=== PATIENT | male | born 1990 | race Caucasian/White ===

== ENCOUNTER 2018-04-29 19:02 | Inpatient (IN) | payer BC ==
[~2018-04-29] VITALS: Ht 193 cm; Wt 93.2 kg
[2018-04-29 19:49] LABS: BASO % 0.7 %; BASO ABS # 0.05 K/uL (0-0.2); EOS % 3.9 %; EOS ABS # 0.27 K/uL (0-0.5); HEMATOCRIT 45.4 % (42-52); HEMOGLOBIN 14.9 g/dL (14.0-18.0); IG# 0.02 K/uL (0.00-0.02); LYMPH % 45.2 %; LYMPH ABS # 3.09 K/uL (1.2-3.4); MEAN CELL VOLUME 84.7 fL (80-100); MEAN CORPUSCULAR HEMOGLOBIN 27.8 pg (25-34); MEAN CORPUSCULAR HGB CONC 32.8 g/dl (32-36); MONO % 8.5 %; MONO ABS # 0.58 K/uL (0.11-0.59); NEUT % 41.4 %; NEUT ABS # 2.83 K/uL (1.4-6.5); PLATELET COUNT 226 K/uL (130-400); RED CELL DISTRIBUTION WIDTH CV 12.2 % (11.5-14.5); RED CELL DISTRIBUTION WIDTH SD 37.3 fL (36.4-46.3); WHITE BLOOD COUNT 6.84 K/uL (4.8-10.8)
--- NOTE | 2018-04-29 20:02 | DIAGNOSTIC IMAGING REPORT ---
ABD/PELVIS NO IV OR ORAL CONT CT DOSE: 349.53 mGy.cm HISTORY: Hernia incarcerated umbilical hernia TECHNIQUE: Multiaxial CT images of the abdomen and pelvis were performed without contrast. A dose lowering technique was utilized adhering to the principles of ALARA. COMPARISON STUDY: None. FINDINGS: Lung bases are clear. Liver spleen and pancreas are unremarkable. Kidneys negative for calcification or hydronephrosis. The bowel pattern is nonobstructive. There is a small periumbilical fat-containing hernia. This measures 8 mm in maximum transaxial dimension. There is no evidence of bowel containment. There are no secondary obstructive characteristics. No evidence for adenopathy within the abdominal pelvic or inguinal region. Bladder is midline. IMPRESSION: 1. 8 mm periumbilical fat-containing hernia. 2. No evidence of bowel containment or obstruction. 3. Study is otherwise unremarkable. The above report was generated using voice recognition software. It may contain grammatical, syntax or spelling errors. Electronically signed by: Bashir Bowden M.D. 04/29/2018 8:01 PM Dictated Date/Time: 04/29/2018 7:58 PM
[2018-04-29 20:10] LABS: CALCIUM 8.8 mg/dl (8.5-10.1); CREATININE 1.24 mg/dl (0.60-1.40); POTASSIUM 3.7 mmol/L (3.5-5.1)
[2018-04-29] MEDS ORDERED: MoRPHine SULFATE 4 MG/ML 1 ML CARP\\VIAL IV PRN (20:45)
[2018-04-29] MEDS ORDERED: ACETAMINOPHEN IV 100 ML IV PRN (20:45)
[2018-04-29] MEDS ORDERED: MoRPHine SULFATE 2 MG/ML CARP IV PRN (20:45)
[2018-04-29] MEDS ORDERED: ONDANSETRON INJ 2 MG/ML 2 ML VIAL IV PRN (20:45)
--- NOTE | 2018-04-29 20:59 | Surgery Consultation ---
Consultation Date of Consultation: Apr 29, 2018. Attending Physician: Reason for Consultation: Incarcerated Umbilical Hernia History of Present Illness Patient is a 27M who presents to the ED this evening due to an umbilical hernia that he cannot reduce. Reports he has had this hernia for approximately 2 years and has always been able to reduce it. States it does not typically cause him any pain. Reports mild discomfort at his hernia site tonight. Denies any erythema, swelling or significant pain in the area. Denies fever, chills, nausea , vomiting. He has not had any changes with bowel movements or urination. Denies use of blood thinning or anticoagulant medication. Denies any history of abdominal surgeries in the past. Social History Smoking Status: Never Smoker Allergies Coded Allergies: No Known Allergies (Unverified , 04/29/18) Home Medications No Active Prescriptions or Reported Meds Current Inpatient Medications Current Inpatient Medications Medications (Trade) Dose Ordered Sig/Hira Route Start Time Stop Time Status Last Admin Dose Admin Sodium Chloride 1,000 ml @ 100 mls/hr Q10H IV 04/29/18 20:45 05/29/18 20:44 UNV Cefoxitin Sodium 2000 mg/Dextrose 60 ml @ 100 mls/hr Q6H IV 04/30/18 07:00 05/01/18 06:59 UNV Ondansetron HCl (Zofran Inj) 4 mg Q6H PRN IV 04/29/18 20:45 05/29/18 20:44 UNV Acetaminophen 100 ml @ 400 mls/hr Q8H PRN IV 04/29/18 20:45 05/29/18 20:44 UNV Morphine Sulfate (MoRPHine SULFATE INJ) 1 mg Q3HWA PRN IV 04/29/18 20:45 05/13/18 20:44 UNV Morphine Sulfate (MoRPHine SULFATE INJ) 3 mg Q3HWA PRN IV 04/29/18 20:45 05/13/18 20:44 UNV Review of Systems Constitutional: No fever, No chills Respiratory: No shortness of breath Cardiovascular: No chest pain Abdomen: + pain (tenderness at hernia site), No nausea, No vomiting, No diarrhea, No constipation Genitourinary - Male: No hematuria, No dysuria Integumentary: No new/changing skin lesions, No color change Physical Exam Date Time Temp Pulse Resp B/P (MAP) Pulse Ox O2 Delivery O2 Flow Rate FiO2 8/8/18 19:08 36.8 76 18 136/84 99 Room Air General Appearance: WD/WN, no apparent distress Head: normocephalic, atraumatic ENT: hearing grossly normal Respiratory/Chest: no respiratory distress Abdomen/GI: normal bowel sounds, soft, no organomegaly, no pulsatile mass, + tenderness (Mild TTP at hernia site.), + hernia (umbilical hernia with mild erythema and TTP, nonreducible. ) Neurologic/Psych: alert, normal mood/affect, oriented x 3 Skin: normal color, warm/dry Laboratory Results Last 24 Hours Test 04/29/18 19:30 White Blood Count 6.84 K/uL Red Blood Count 5.36 M/uL Hemoglobin 14.9 g/dL Hematocrit 45.4 % Mean Corpuscular Volume 84.7 fL Mean Corpuscular Hemoglobin 27.8 pg Mean Corpuscular Hemoglobin Concent 32.8 g/dl Platelet Count 226 K/uL Mean Platelet Volume 9.0 fL Neutrophils (%) (Auto) 41.4 % Lymphocytes (%) (Auto) 45.2 % Monocytes (%) (Auto) 8.5 % Eosinophils (%) (Auto) 3.9 % Basophils (%) (Auto) 0.7 % Neutrophils # (Auto) 2.83 K/uL Lymphocytes # (Auto) 3.09 K/uL Monocytes # (Auto) 0.58 K/uL Eosinophils # (Auto) 0.27 K/uL Basophils # (Auto) 0.05 K/uL RDW Standard Deviation 37.3 fL RDW Coefficient of Variation 12.2 % Immature Granulocyte % (Auto) 0.3 % Immature Granulocyte # (Auto) 0.02 K/uL Sodium Level 140 mmol/L Potassium Level 3.7 mmol/L Chloride Level 106 mmol/L Carbon Dioxide Level 29 mmol/L Anion Gap 5.0 mmol/L Blood Urea Nitrogen 20 mg/dl Creatinine 1.24 mg/dl Est Creatinine Clear Calc Drug Dose 108.8 ml/min Estimated GFR () 91.1 Estimated GFR (Non- 78.6 BUN/Creatinine Ratio 16.4 Random Glucose 89 mg/dl Calcium Level 8.8 mg/dl Assessment & Plan incarcerated umbilical hernia Abdomen soft, non-distended, mild TTP at hernia site. No N/V Plan for open umbilical hernia repair, possible mesh with Dr. Kang tomorrow AM. Risks, benefits, alternatives to the procedure were discussed with patient - questions answered. Admit med/surg, NPO after midnight, 2g IV mefoxin in AM, IVF, pain medication prn, anti-emetics prn, SCDs. OR notified. Please contact with questions or concerns.
[2018-04-29 21:40] VITALS: BP 127/79; PULSE 74; TEMP 37.2; O2SAT 97; Ht 193 cm; Wt 93.2 kg
[2018-04-29] MEDS: SODIUM CHLORIDE 0.9% 1000ML 1,000 ML IV SCH (22:45)
[2018-04-29 22:56] VITALS: BP 138/81; PULSE 75; TEMP 37; O2SAT 97
--- NOTE | 2018-04-30 00:47 | EMERGENCY ROOM VISIT NOTE ---
History Report prepared by Panda: Alison Shaffer Under the Supervision of: Dr. Magdiel Lara M.D. First contact with patient: 19:11 Chief Complaint: OTHER COMPLAINT Stated Complaint: HERNIA,DOCTOR REFERRED History of Present Illness The patient is a 27 year old male who presents to the Emergency Room with complaints of a constant incarcerated bellybutton hernia beginning yesterday. He notes his discomfort is a 0/10 when resting, but is worsened by pressure. He notes he has had the hernia for about 2 years, and it intermittently pops out but he is able to push it back in. The patient states the hernia popped out yesterday, and he was unable to push it back in, resulting in irritation. He notes he was seen at Urgent Care before coming to the ED. The patient last ate 7 hours ago and notes he does not have a PCP. Pt denies LOC, headache, fevers, chills, diaphoresis, visual changes, neck pain , chest pain, breathing difficulties, nausea, vomiting, back pain, melena, hematochezia, urinary symptoms, numbness, weakness, lymphadenopathy, rash, or other complaints. Source of History: patient Onset: yesterday Position: abdomen (bellybutton) Symptom Intensity: 0/10 Quality: other (incarcerated hernia) Modifying Factors (Worsening): other (pressure) Note: Associated symptom: inability to reduce hernia Review of Systems See HPI for pertinent positives and negatives. A total of ten systems were reviewed and were otherwise negative. Past Medical & Surgical Medical Problems: (1) Lymphedema of right lower extremity (2) Umbilical hernia, incarcerated Surgical Problems: (1) Hydrocele in Family History No pertinent family history stated. Social History Smoking Status: Never Smoker Smokeless Tobacco Use: No Alcohol Use: occasionally Drug Use: none Marital Status: single Housing Status: lives alone Occupation Status: employed Current/Historical Medications No Active Prescriptions or Reported Meds Allergies Coded Allergies: No Known Allergies (Unverified , 04/29/18) Physical Exam Vital Signs Date Time Temp Pulse Resp B/P (MAP) Pulse Ox O2 Delivery O2 Flow Rate FiO2 04/29/18 19:08 36.8 76 18 136/84 99 Room Air Physical Exam GENERAL: Awake, alert, well-appearing, in no distress HENT: Normocephalic, atraumatic. Oropharynx unremarkable. EYES: Normal conjunctiva. Sclera non-icteric. NECK: Supple. No nuchal rigidity. FROM. No masses. RESPIRATORY: Clear to auscultation. No wheezes. No rales. Normal respiratory effort. CARDIAC: Normal rate. Normal rhythm. No murmurs. No rubs. Extremities warm and well perfused. Pulses equal. No JVD. GI: Soft, non-distended. No rebound or guarding. Umbilical hernia, tender, swollen, some mild induration but nonreducible, firm. RECTAL: Deferred. MUSCULOSKELETAL: Atraumatic. Chest examination reveals no tenderness. The back is symmetrical on inspection without obvious abnormality. There is no CVA tenderness to palpation. No joint edema. LOWER EXTREMITIES: Calves are equal size bilaterally and non-tender. No edema. No discoloration. NEURO: Normal sensorium. No sensory or motor deficits noted. SKIN: No rash or jaundice noted. Medical Decision & Procedures ER Provider Diagnostic Interpretation: Radiology results as stated below per my review and radiologist interpretation: ABD/PELVIS NO IV OR ORAL CONT CT DOSE: 349.53 mGy.cm HISTORY: Hernia incarcerated umbilical hernia TECHNIQUE: Multiaxial CT images of the abdomen and pelvis were performed without contrast. A dose lowering technique was utilized adhering to the principles of ALARA. COMPARISON STUDY: None. FINDINGS: Lung bases are clear. Liver spleen and pancreas are unremarkable. Kidneys negative for calcification or hydronephrosis. The bowel pattern is nonobstructive. There is a small periumbilical fat-containing hernia. This measures 8 mm in maximum transaxial dimension. There is no evidence of bowel containment. There are no secondary obstructive characteristics. No evidence for adenopathy within the abdominal pelvic or inguinal region. Bladder is midline. IMPRESSION: 1. 8 mm periumbilical fat-containing hernia. 2. No evidence of bowel containment or obstruction. 3. Study is otherwise unremarkable. The above report was generated using voice recognition software. It may contain grammatical, syntax or spelling errors. Electronically signed by: Bashir Bowden M.D. 04/29/2018 8:01 PM Dictated Date/Time: 04/29/2018 7:58 PM Laboratory Results 04/29/18 19:30 Red Blood Count 5.36, Mean Corpuscular Volume 84.7, Mean Corpuscular Hemoglobin 27.8, Mean Corpuscular Hemoglobin Concent 32.8, Mean Platelet Volume 9.0, Neutrophils (%) (Auto) 41.4, Lymphocytes (%) (Auto) 45.2, Monocytes (%) (Auto) 8.5, Eosinophils (%) (Auto) 3.9, Basophils (%) (Auto) 0.7, Neutrophils # (Auto) 2.83, Lymphocytes # (Auto) 3.09, Monocytes # (Auto) 0.58, Eosinophils # (Auto) 0.27, Basophils # (Auto) 0.05 04/29/18 19:30 Test 04/29/18 19:30 White Blood Count 6.84 K/uL (4.8-10.8) Red Blood Count 5.36 M/uL (4.7-6.1) Hemoglobin 14.9 g/dL (14.0-18.0) Hematocrit 45.4 % (42-52) Mean Corpuscular Volume 84.7 fL (80-100) Mean Corpuscular Hemoglobin 27.8 pg (25-34) Mean Corpuscular Hemoglobin Concent 32.8 g/dl (32-36) Platelet Count 226 K/uL (130-400) Mean Platelet Volume 9.0 fL (7.4-10.4) Neutrophils (%) (Auto) 41.4 % Lymphocytes (%) (Auto) 45.2 % Monocytes (%) (Auto) 8.5 % Eosinophils (%) (Auto) 3.9 % Basophils (%) (Auto) 0.7 % Neutrophils # (Auto) 2.83 K/uL (1.4-6.5) Lymphocytes # (Auto) 3.09 K/uL (1.2-3.4) Monocytes # (Auto) 0.58 K/uL (0.11-0.59) Eosinophils # (Auto) 0.27 K/uL (0-0.5) Basophils # (Auto) 0.05 K/uL (0-0.2) RDW Standard Deviation 37.3 fL (36.4-46.3) RDW Coefficient of Variation 12.2 % (11.5-14.5) Immature Granulocyte % (Auto) 0.3 % Immature Granulocyte # (Auto) 0.02 K/uL (0.00-0.02) Anion Gap 5.0 mmol/L (3-11) Est Creatinine Clear Calc Drug Dose 108.8 ml/min Estimated GFR () 91.1 Estimated GFR (Non- 78.6 BUN/Creatinine Ratio 16.4 (10-20) Calcium Level 8.8 mg/dl (8.5-10.1) Laboratory results reviewed by me ED Course 1912: The patient was evaluated in room C8. A complete history and physical exam was performed. 2028: Discussed the patient's case with Tin Carr PA-C, and Dr. Kang of [facility] surgery. The patient will be evaluated. 2055: Discussed the patient's case with Tin Carr PA-C, and Dr. Kagn of [facility] surgery. The patient will be admitted. 2055: I reevaluated the patient. Discussed results and the treatment plan. He is agreeable to admittance. Medical Decision Triage Nursing notes reviewed and agree them. The patient's history was concerning for abdominal pain. Differential diagnosis: Etiologies such as incarcerated hernia, appendicitis, diverticulitis, PUD, biliary pathology, UTI, pancreatitis, obstruction, mesenteric ischemia, aortic pathology, infections, inflammatory bowel disease, renal colic, as well as others were entertained. Physical examination findings: As above. Umbilical hernia present. Nonreducible. ER treatment provided: Patient declined analgesia On reassessment the patient felt the same Diagnostics interpreted by me: The labs revealed an unremarkable CBC and chemistry panel Imaging studies: CAT scan as above Consultation: A consultation was placed with the general surgery team.. The case was discussed and diagnostics were reviewed. The patient was evaluated in the ER for further treatment. He was admitted for further treatment. Medication Reconcilliation Current Medication List: was personally reviewed by me Blood Pressure Screening Patient's blood pressure: Elevated blood pressure Blood pressure disposition: Elevated BP felt to be situational Consults Time Called: 2025 Consulting Physician: Tin Carr PA-C, and Dr. Kang of [facility] surgery Returned Call: 2028 2028: Discussed the patient's case with Tin Carr PA-C, and Dr. Kang of [facility] surgery. The patient will be evaluated. 2055: Discussed the patient's case with Tin Carr PA-C, and Dr. Kang of [facility] surgery. The patient will be admitted. Impression Primary Impression: Umbilical hernia, incarcerated Scribe Attestation The scribe's documentation has been prepared under my direction and personally reviewed by me in its entirety. I confirm that the note above accurately reflects all work, treatment, procedures, and medical decision making performed by me. Departure Information Dispostion Being Evaluated By Surgeon Prescriptions No Active Prescriptions or Reported Meds Referrals No Doctor, Assigned (PCP) Patient Instructions My [facility]
[2018-04-30] MEDS ORDERED: CEFOXITIN IV 2,000 MG in DEXTROSE 5% 50ML 50 ML IV SCH (07:00)
[2018-04-30 08:00] VITALS: BP 130/81; PULSE 87; TEMP 36.8; O2SAT 97
[2018-04-30] MEDS: SODIUM CHLORIDE 0.9% 1000ML 1,000 ML IV SCH (08:17)
--- NOTE | 2018-04-30 08:39 | Surgery Progress Note ---
Surgery Progress Note Date of Service Apr 30, 2018. Subjective 27-year-old male with known umbilical hernia admitted with incarcerated umbilical hernia overnight. Does not remember an inciting event, but developed pain in his umbilicus and could not reduce the bulge as he normally can. CT scan showed incarcerated preperitoneal fat and a small umbilical hernia. Objective Vital Signs: Date Time Temp Pulse Resp B/P (MAP) Pulse Ox O2 Delivery O2 Flow Rate FiO2 04/30/18 08:00 36.8 87 16 130/81 (97) 97 Room Air 04/30/18 00:35 Room Air 04/29/18 22:56 37.0 75 14 138/81 (100) 97 Room Air 04/29/18 21:40 37.2 74 12 127/79 97 Room Air 04/29/18 21:05 99 20 136/83 98 04/29/18 19:08 36.8 76 18 136/84 99 Room Air General Appearance: WD/WN, no apparent distress Head: normocephalic, atraumatic Neck: supple, no adenopathy, thyroid normal, no JVD, no carotid bruits, trachea midline Respiratory/Chest: chest non-tender, lungs clear, normal breath sounds, no respiratory distress, no accessory muscle use Cardiovascular: regular rate, rhythm, no edema, no gallop, no JVD, no murmur Abdomen: normal bowel sounds, non distended, soft, no organomegaly, no pulsatile mass, + hernia (Incarcerated umbilical hernia containing preperitoneal fat, slightly tender to palpation) Extremities: normal range of motion, non-tender, normal inspection, no pedal edema, no calf tenderness, normal capillary refill, pelvis stable Laboratory Results: Results Past 24 Hours Test 04/29/18 19:30 Range/Units White Blood Count 6.84 4.8-10.8 K/uL Red Blood Count 5.36 4.7-6.1 M/uL Hemoglobin 14.9 14.0-18.0 g/dL Hematocrit 45.4 42-52 % Mean Corpuscular Volume 84.7 80-100 fL Mean Corpuscular Hemoglobin 27.8 25-34 pg Mean Corpuscular Hemoglobin Concent 32.8 32-36 g/dl Platelet Count 226 130-400 K/uL Mean Platelet Volume 9.0 7.4-10.4 fL Neutrophils (%) (Auto) 41.4 % Lymphocytes (%) (Auto) 45.2 % Monocytes (%) (Auto) 8.5 % Eosinophils (%) (Auto) 3.9 % Basophils (%) (Auto) 0.7 % Neutrophils # (Auto) 2.83 1.4-6.5 K/uL Lymphocytes # (Auto) 3.09 1.2-3.4 K/uL Monocytes # (Auto) 0.58 0.11-0.59 K/uL Eosinophils # (Auto) 0.27 0-0.5 K/uL Basophils # (Auto) 0.05 0-0.2 K/uL RDW Standard Deviation 37.3 36.4-46.3 fL RDW Coefficient of Variation 12.2 11.5-14.5 % Immature Granulocyte % (Auto) 0.3 % Immature Granulocyte # (Auto) 0.02 0.00-0.02 K/uL Sodium Level 140 136-145 mmol/L Potassium Level 3.7 3.5-5.1 mmol/L Chloride Level 106 98-107 mmol/L Carbon Dioxide Level 29 21-32 mmol/L Anion Gap 5.0 3-11 mmol/L Blood Urea Nitrogen 20 7-18 mg/dl Creatinine 1.24 0.60-1.40 mg/dl Est Creatinine Clear Calc Drug Dose 108.8 ml/min Estimated GFR () 91.1 Estimated GFR (Non- 78.6 BUN/Creatinine Ratio 16.4 10-20 Random Glucose 89 70-99 mg/dl Calcium Level 8.8 8.5-10.1 mg/dl Diagnostic Interpretation: ABD/PELVIS NO IV OR ORAL CONT CT DOSE: 349.53 mGy.cm HISTORY: Hernia incarcerated umbilical hernia TECHNIQUE: Multiaxial CT images of the abdomen and pelvis were performed without contrast. A dose lowering technique was utilized adhering to the principles of ALARA. COMPARISON STUDY: None. FINDINGS: Lung bases are clear. Liver spleen and pancreas are unremarkable. Kidneys negative for calcification or hydronephrosis. The bowel pattern is nonobstructive. There is a small periumbilical fat-containing hernia. This measures 8 mm in maximum transaxial dimension. There is no evidence of bowel containment. There are no secondary obstructive characteristics. No evidence for adenopathy within the abdominal pelvic or inguinal region. Bladder is midline. IMPRESSION: 1. 8 mm periumbilical fat-containing hernia. 2. No evidence of bowel containment or obstruction. 3. Study is otherwise unremarkable. Assessment & Plan 27-year-old male with incarcerated umbilical hernia containing preperitoneal fat Plan for umbilical hernia repair - open today in OR Risks the procedure were discussed to include but not limited to bleeding, infection, recurrence, need for future more extensive surgery, damage surrounding structures or umbilicus, pain, and the risks of anesthesia Likely discharge this afternoon
[2018-04-30 09:40] VITALS: O2SAT 97
[2018-04-30] MEDS ORDERED: MIDAZOLAM HCL 1 MG/ML 2ML VIAL ONE (11:58)
[2018-04-30] MEDS ORDERED: FENTANYL CITRATE INJ 50 MCG/1 ML 2 ML VIAL ONE ×3 (11:59→13:03)
[2018-04-30] MEDS ORDERED: HYDROmorphone INJ 2 MG/ML SYR/VIAL ONE ×3 (12:16→13:22)
[2018-04-30] MEDS ORDERED: DEXAMETHASONE SOD INJ 4 MG/ML VIAL ONE (12:17)
[2018-04-30] MEDS ORDERED: ONDANSETRON INJ 2 MG/ML 2 ML VIAL ONE ×2 (12:17→13:10)
[2018-04-30] MEDS ORDERED: GLYCOPYRROLATE INJ 0.2 MG/ML VIAL ONE (12:17)
[2018-04-30] MEDS ORDERED: NEOSTIGMINE METHYLSULFATE 5 MG/5 ML SYR ONE (12:17)
[2018-04-30] MEDS ORDERED: LIDOCAINE HCL 2% 2 ML VIAL (20MG/ML) ONE (12:17)
[2018-04-30] MEDS ORDERED: PROPOFOL IV EMULSION 10 MG/ML 20 ML VIAL ONE (12:17)
[2018-04-30] MEDS ORDERED: BUPIVACAINE 0.5 % 5 MG/1 ML PF 10ML VIAL ONE (12:32)
[2018-04-30] MEDS ORDERED: ESMOLOL HCL 10 MG/ML 10 ML VIAL ONE (13:10)
[2018-04-30] MEDS ORDERED: EpHEDrine SULFATE INJ 50 MG/ML AMP IV PRN (13:15)
[2018-04-30] MEDS ORDERED: ONDANSETRON INJ 2 MG/ML 2 ML VIAL IV PRN (13:15)
[2018-04-30] MEDS ORDERED: PROMETHAZINE HCL INJ 12.5 MG in SODIUM CHLORIDE 0.9% 50ML 50 ML IV PRN (13:15)
[2018-04-30] MEDS ORDERED: HYDROmorphone INJ 1 MG/ML SYR IV PRN (13:15)
[2018-04-30] MEDS ORDERED: PHENYLEPHRINE 100MCG/ML 5ML SYR IV PRN (13:15)
[2018-04-30] MEDS ORDERED: ATROPINE SULFATE 0.1 MG/ML 5ML SYR IV PRN (13:15)
[2018-04-30] MEDS ORDERED: FENTANYL CITRATE INJ 50 MCG/1 ML 2 ML VIAL IV PRN (13:15)
--- NOTE | 2018-04-30 13:27 | [facility] Post Operative Brief Note ---
Immediate Operative Summary Operative Date Apr 30, 2018. Pre-Operative Diagnosis Incarcerated Umbilical Hernia Post-Operative Diagnosis Same as preoperative Procedure(s) Performed Open Umbilical Hernia Repair, incarcerated Surgeon Dr. Kang Mat Puncher Surgeon(s) Bella Haq PA-C Estimated Blood Loss 2ml Findings Consistent with Post-Op Diagnosis Incarcerated, ischemic preperitoneal fat. 1 cm defect closed primarily Specimens A.) Umbilical Hernia Sac Drains None Anesthesia Type General Complication(s) none Disposition Accompanied Pt To Recover: no Disposition: Recovery Room / PACU
[2018-04-30] MEDS ORDERED: LARYING-O-JET KIT (LTA) ONE (13:29)
[2018-04-30] MEDS ORDERED: KETOROLAC TROMETHAMINE 30 MG/ML VIAL ONE (13:29)
--- NOTE | 2018-04-30 13:30 | [facility] Operative Report ---
Operative Report Operative Date Apr 30, 2018. Pre-Operative Diagnosis Incarcerated Umbilical Hernia Post-Operative Diagnosis Incarcerated umbilical hernia Procedure(s) Performed Open umbilical hernia repair - primary, incarcerated Surgeon Dr. Kang Sales And Service Technician Surgeon(s) Bella Haq PA-C Estimated Blood Loss 2ml Findings Incarcerated, ischemic preperitoneal fat resected. 1 cm fascial defect closed primarily with 0 Nurolon sutures. Specimens A.) Umbilical Hernia Sac Drains None Anesthesia General Complication(s) None Disposition Recovery Room / PACU Indications 27-year-old male with known umbilical hernia, admitted from the emergency department last night with incarceration but no signs of strangulation or obstruction. Plan for open umbilical hernia repair. The risks of the procedure were discussed, all questions were answered, and the patient agreed to proceed with surgery as planned. Description of Procedure The patient was properly identified, consented, and taken to the operating room where he was placed in the supine position. General endotracheal anesthesia was induced. SCDs and a safety belt were placed. Preoperative antibiotics were administered. The patient's abdomen was prepped and draped in the standard sterile fashion. Surgical timeout was performed and all parties were in agreement that this was the correct patient and procedure to be performed and we continued as planned. A curvilinear infraumbilical incision was made and deepened down to the fascia with blunt dissection. The umbilical stalk was circumferentially dissected with a Marisa, and divided below the level of the skin. There is a 8 mm piece of incarcerated, partially ischemic preperitoneal flat that was reduced and resected. A 1 cm fascial defect was encountered. The hernia was reduced. The fascia anteriorly and posteriorly was cleared of investing tissue for several centimeters. Hemostasis was achieved within the wound. The hernia defect was closed primarily with interrupted 0 Nurolon sutures. The wound was irrigated and hemostasis confirmed. The umbilicus was tacked down to the fascia with 3-0 Vicryl sutures. Local anesthetic in the form of 0.5% Marcaine was injected in the fascia and along the skin incision. The skin was closed with interrupted 3-0 Vicryl deep dermal sutures, followed by 4-0 Monocryl running subcuticular suture. Dermabond was placed over the wound. The patient was extubated in the operating room and taken to the PACU where he recovered without apparent incident. All sponge, instrument and needle counts were correct at the conclusion of the procedure. The patient tolerated the procedure well. The physician's advertising assistant manager was present and scrubbed for the entire to the case. She was critical in positioning the patient, prepping and draping, retraction and exposure, closure the incisions, and placement of the dressings. I attest to the content of the Intraoperative Record and any orders documented therein. Any exceptions are noted below.
[2018-04-30] MEDS ORDERED: OXYC-57 PO (13:38)
--- NOTE | 2018-04-30 13:41 | Discharge Instructions ---
Discharge Instructions Date of Service Apr 30, 2018. Admission Reason for Admission: Umbilical Hernia,Incarcerated Discharge Discharge Diagnosis / Problem: Umbilical Hernia, Incarcerated Discharge Goals Goal(s): Decrease discomfort, Improve function Activity Recommendations Activity Limitations: as noted below Lifting Limitations: no more than 10 pounds Exercise/Sports Limitations: until after follow-up appointment May Resume Sexual Activity: after follow-up appointment Shower/Bathe: tomorrow Driving or Machine Use: resume 1 day after discharge . Instructions / Follow-Up Instructions / Follow-Up You have surgical glue, Dermabond, over your incision. You may shower tomorrow, but please do not soak or scrub your incision. Please follow-up with Dr. Kang in the General Surgery Clinic located at [address] [place] [address] MAGGIE Pastrana in 1 week. Please call the clinic at to schedule this appointment. Please call the clinic at [phone] with any questions or concerns. Current Hospital Diet Patient's current hospital diet: Clear Liquid Diet Discharge Diet Recommended Diet: Regular Diet Procedures Procedures Performed: Open Umbilical Hernia Repair, incarcerated Pending Studies Studies pending at discharge: no Medical Emergencies . Who to Call and When: Medical Emergencies: If at any time you feel your situation is an emergency, please call 911 immediately. . Non-Emergent Contact Non-Emergency issues call your: Primary Care Provider, Surgeon Call Non-Emergent contact if: temperature is above 101.5, your pain is not controlled, wound has increased drainage, wound has increased redness . "Provider Documentation" section prepared by Bella Haq. .
[2018-04-30] MEDS ORDERED: OXYCODONE/ACETAMINOPHEN 5-325 TAB PO PRN ×2 (13:45)
[2018-04-30 14:30] VITALS: BP 122/75; PULSE 84; TEMP 37.1; O2SAT 98
--- NOTE | 2018-04-30 14:45 | Anesthesiology Progress Note ---
Anesthesia Post Op Note Date & Time Apr 30, 2018 at 14:44 Vital Signs Pain Intensity: 0 Vital Signs Past 12 Hours Date Time Temp Pulse Resp B/P (MAP) Pulse Ox O2 Delivery O2 Flow Rate FiO2 04/30/18 14:12 86 16 99 04/30/18 14:12 86 16 04/30/18 14:10 36.7 82 16 130/72 (81) 99 Nasal Cannula 2 04/30/18 14:10 130/72 04/30/18 14:07 101 20 99 04/30/18 14:07 100 20 04/30/18 14:06 89 18 04/30/18 14:06 93 18 99 04/30/18 14:05 125/71 04/30/18 14:04 85 17 99 04/30/18 14:04 85 17 04/30/18 14:03 92 18 99 04/30/18 14:03 92 18 04/30/18 14:00 132/76 04/30/18 13:58 97 15 100 04/30/18 13:58 97 15 04/30/18 13:55 126/77 04/30/18 13:53 88 16 100 04/30/18 13:53 87 16 04/30/18 13:50 138/87 04/30/18 13:48 92 12 138/90 99 04/30/18 13:48 92 12 04/30/18 13:48 36.6 93 14 138/90 (103) 99 Oxymask 10 04/30/18 09:40 97 Room Air 04/30/18 08:00 36.8 87 16 130/81 (97) 97 Room Air 04/30/18 07:40 Room Air Notes Mental Status: alert / awake / arousable, participated in evaluation Pt Amnestic to Procedure: Yes Nausea / Vomiting: adequately controlled Pain: adequately controlled Airway Patency, RR, SpO2: stable & adequate BP & HR: stable & adequate Hydration State: stable & adequate Anesthetic Complications: no major complications apparent
[2018-04-30 15:00] VITALS: BP 125/76; PULSE 79; O2SAT 97
[2018-04-30 15:49] VITALS: BP 122/70; PULSE 91; TEMP 36.5; O2SAT 98
[2018-04-30 17:42] VITALS: BP 122/70; PULSE 91; TEMP 36.5; O2SAT 98
--- NOTE | 2018-05-05 11:16 | Discharge Summary ---
Discharge Summary Date of Service May 05, 2018. Admission Date/Reason Apr 29, 2018 at 20:48 Umbilical Hernia,Incarcerated. Discharge Date/Disposition Apr 30, 2018 Home Diagnosis Principal Diagnosis: Incarcerated Umbilical Hernia Procedure(s) Performed Open Incarcerated Umbilical Hernia Repair Admission Physical Exam As per Admitting History & Physical. Hospital Course Patient is a 27M who presented to the [facility] ED due to an umbilical hernia that cannot be reduced. Reported that he has had this hernia for approximately 2 years and has always been able to reduce it. States it does not typically cause him any pain. Denied any erythema, swelling or significant pain in the area. Denied fever, chills, nausea, or vomiting. He has not had any changes with bowel movements or urination. Denies use of blood thinning or anticoagulant medication. Denies any history of abdominal surgeries in the past. CT Scan Abdomen/Pelvis w/o IV or PO contrast- 1. 8 mm periumbilical fat-containing hernia. 2. No evidence of bowel containment or obstruction. 3. Study is otherwise unremarkable. Patient was admitted to General Surgery team with plan for Open Repair of Incarcerated Umbilical Hernia in AM with Dr. Kang. Risks of surgery reviewed with patient. Consent obtained. Open Repair of Umbilical Hernia, Incarcerated, was performed on 04/30/2018 Pre-Op Diagnosis- Incarcerated Umbilical Hernia Post-Op Diagnosis- Same as Pre-Op Post-Operatively, patient was transferred back to Med/Surg floor where pain was adequately controlled, voiding on own, and regular diet was tolerated. Patient was deemed eligible for discharge later in the day. Return precautions reviewed. Patient to follow-up with Dr. Kang in the General Surgery Clinic in 1-2 weeks. Discharge Instructions Please refer to the electronic Patient Visit Report (Discharge Instructions) for additional information.
== END 2018-04-30 18:54 | disposition home or self-care (01) | DRG 355 ==
LOC: C.EDB 19:03 → C.MSN 20:48 → UNDOADMIN 20:48 → ENRESERV 21:11
PROVIDERS: ADMIT Surgery; ATTEND Surgery
PROC: 0WQF0ZZ Repair Abdominal Wall, Open Approach (ICD-10-PCS; principal; 2018-04-29)
DX: K42.0 Umbilical hernia with obstruction, without gangrene (principal)